=== PATIENT | female | born 1965 | race Caucasian/White ===

== ENCOUNTER → 2016-07-13 | Outpatient (CLI) | payer MEDICAID ==
--- NOTE | 2016-07-13 14:02 | XR ---
EXAMINATION TYPE: XR chest 2V DATE OF EXAM: 07/13/2016 12:39 PM HISTORY: Cough and shortness of breath. REFERENCE: Previous study dated 09/18/2014. FINDINGS: The lungs are clear. Pleural spaces are clear. The heart is not enlarged. IMPRESSION: NORMAL CHEST.
== END | disposition home or self-care (01) ==
LOC: RADXRMAIN 12:28
PROVIDERS: ATTEND Family Medicine
DX: R06.02 Shortness of breath (principal)
CPT/HCPCS: 71020

== ENCOUNTER → 2017-08-13 | Outpatient (CLI) | payer MEDICAID ==
--- NOTE | 2017-08-16 12:41 | MM ---
Reason for exam: screening (asymptomatic). Last mammogram was performed 1 year and 5 months ago. History: Patient is nulliparous. Family history of breast cancer in mother, breast cancer in maternal grandmother, and breast cancer in maternal aunt. Took estrogen for 11 years. Physical Findings: A clinical breast exam by your physician is recommended on an annual basis and results should be correlated with mammographic findings. MG 3D Screening Mammo W/Cad Bilateral CC and MLO view(s) were taken. Prior study comparison: March 30, 2016, bilateral MG 3d screening mammo w/cad. April 19, 2013, bilateral digital screening mammo w/CAD. There are scattered fibroglandular densities. No significant changes when compared with prior studies. ASSESSMENT: Negative, BI-RAD 1 RECOMMENDATION: Routine screening mammogram of both breasts in 1 year.
== END | disposition home or self-care (01) ==
LOC: RADMAMWWP 13:34
PROVIDERS: ATTEND Obstetrics & Gynecology
DX: Z12.31 Encounter for screening mammogram for malignant neoplasm of breast (principal)
CPT/HCPCS: 77063; 77067

== ENCOUNTER → 2018-03-29 | Outpatient (CLI) | payer MEDICAID ==
--- NOTE | 2018-03-29 21:59 | MR ---
EXAMINATION TYPE: MR brain wo con DATE OF EXAM: 03/29/2018 COMPARISON: NONE HISTORY: Headaches TECHNIQUE: Multiplanar, multisequence imaging of the brain and brainstem is performed without IV cont rast. FINDINGS: Diffusion weighted images demonstrate no evidence of a recent infarct or other diffusion abnormality. There is no worrisome extra-axial fluid collection. The ventricular system and cisternal spaces are normal in size and appearance. The brain volume is age appropriate. There are scattered foci of T2 h yperintensity seen throughout the superficial, deep, and periventricular white matter. Approximately 20-30 scattered lesions are present. Lesions are nonspecific in appearance and distribution of most l ikely on basis of proximal or proximal vessel ischemic change of patient this age. Midline structures demonstrate normal morphology. The craniocervical junction appears within normal limits. Normal vascular flow voids are present. The visualized sinuses are clear and the globes are i ntact. IMPRESSION: Moderate nonspecific white matter changes most likely on basis of product of chronic smal l vessel ischemic change in patient of this age.
== END | disposition home or self-care (01) ==
LOC: RADMRIMAIN 20:30
PROVIDERS: ATTEND Nurse Practitioner Family
DX: R90.89 Other abnormal findings on diagnostic imaging of central nervous system (principal)
CPT/HCPCS: 70551

== ENCOUNTER 2018-06-22 05:45 | Observation (INO) | payer MEDICAID ==
[2018-06-22] MEDS ORDERED: ASPIRIN 81 MG PO STA (05:57)
[2018-06-22] MEDS ORDERED: NITROGLYCERIN SL TABS 0.4 MG TAB SUBLINGUAL STA (05:57)
[2018-06-22] MEDS ORDERED: HEPARIN SODIUM,PORCINE 5,000 UNIT/ML 1 ML VIAL IV ONE (05:59)
--- NOTE | 2018-06-22 06:02 | ED ---
General Adult HPI - General Chief complaint: Chest Pain Stated complaint: Chest Pain Source: patient Mode of arrival: wheelchair Limitations: no limitations - Related Data Home Medications Medication Instructions Recorded Confirmed Aspirin EC [Ecotrin Low Dose] 81 mg PO DAILY 05/11/14 04/03/15 Cholecalciferol [Vitamin D3] 6,000 unit PO DAILY@1200 05/11/14 04/03/15 Multivitamins, Thera [Multivitamin 1 each PO DAILY@1200 05/11/14 04/03/15 (formulary)] lamoTRIgine [LaMICtal] 100 mg PO QAM 05/11/14 04/03/15 Levothyroxine Sodium [Synthroid] 175 mcg PO DAILY 04/03/15 04/03/15 Aspirin/Acetaminophen/Caffeine 1 tab PO Q12H PRN 06/22/18 06/22/18 [Excedrin Migraine Caplet] Escitalopram Oxalate [Lexapro] 20 mg PO DAILY 06/22/18 06/22/18 Ibuprofen [Motrin Ib] 400 - 600 mg PO Q6H PRN 06/22/18 06/22/18 buPROPion HCL [Wellbutrin XL] 300 mg PO DAILY 06/22/18 06/22/18 Allergies Allergy/AdvReac Type Severity Reaction Status Date / Time No Known Allergies Allergy Verified 06/22/18 06:57 Review of Systems ROS Statement: Those systems with pertinent positive or pertinent negative responses have been documented in the HPI. ROS Other: All systems not noted in ROS Statement are negative. Past Medical History Past Medical History: Hypertension, Thyroid Disorder Additional Past Medical History / Comment(s): "Broken heart syndrome" History of Any Multi-Drug Resistant Organisms: None Reported Past Surgical History: Tonsillectomy Additional Past Surgical History / Comment(s): CARPAL TUNNEL SURGERY, HEART CATH ONE YEAR AGO, Additional Past Anesthesia/Blood Transfusion Reaction / Comment(s): TAKES A WHILE TO COME OUT AND BLOOD PRESSURE DIPS DOWN Past Psychological History: Depression Smoking Status: Never smoker Past Alcohol Use History: Occasional Past Drug Use History: None Reported - Past Family History Mother Family Medical History: Cancer Additional Family Medical History / Comment(s): BREAST CA, JOINT REPLACEMENTS Father Family Medical History: Diabetes Mellitus Additional Family Medical History / Comment(s): PACEMAKER, ENLARGED HEART, JOINT REPLACEMENTS, DIET CONTROLLED DM, MITRAL VALVE REPLACED General Exam Limitations: no limitations Course Vital Signs 06/22/18 06/22/18 06/22/18 05:49 06:06 06:35 Temperature 98.3 F Pulse Rate 91 66 Pulse Rate [ 74 Y[employer] Weight [employer] Strength Tester ] Respiratory 20 18 Rate Blood Pressure 150/65 123/80 O2 Sat by Pulse 97 96 Oximetry Medical Decision Making - Medical Decision Making Dictation was produced using [employer] dictation software. please excuse any grammatical, word or spelling errors. Chief Complaint: 52-year-old female with past medical history of thyroid disease , hypertension, broken heart cardiomyopathy presents with chest pressure. History of Present Illness: Patient 52-year-old female. She states she was getting ready and going to work. She was in a car which she started developing pressure-like sensation to her substernal area. Patient denies any radiation of her symptoms to her jaw or shoulders. No associated diaphoresis. She is however complaining of some nausea. Denies any emesis. Patient denies any history of coronary artery disease. Patient states she felt normal upon waking. Patient is complaining of chest pressure. Denies any numbness or paresthesias to the arms or legs. The ROS documented in this emergency department record has been reviewed and confirmed by me. Those systems with pertinent positive or negative responses have been documented in the HPI. All other systems are other negative and/or noncontributory. PHYSICAL EXAM: General Impression: Alert and oriented x3, acute distress secondary to pain HEENT: Normocephalic atraumatic, extra-ocular movements intact, pupils equal and reactive to light bilaterally, mucous membranes moist. Cardiovascular: Heart regular rate and rhythm, S1&S2 audible, no murmurs, rubs or gallops Chest: Lungs clear to auscultation bilaterally, no rhonchi, no wheeze, no rales Abdomen: Bowel sounds present, abdomen soft, non-tender, non-distended, no organomegaly Musculoskeletal: Pulses present and equal in all extremities, no peripheral edema Motor: Power 5/5 bilaterally, no focal deficits noted Neurological: CN II-XII grossly intact, no focal motor or sensory deficits noted Skin: Intact with no visualized rashes Psych: Normal affect and mood ED course: 52-year-old female presents with chief complaint of chest pressure. Vital signs upon arrival are within acceptable limits. Patient's history of present illness is concerning for acute coronary syndrome. Initial EKG does not show any findings of ischemia or infarction. Patient given aspirin. Patient given sublingual nitroglycerin. Patient is started on heparin. Repeat EKG is performed 30 minutes later showing no dynamic changes.Laboratory evaluation obtained. CBC, metabolic panel, coag panel unremarkable. Cardiac enzymes. Patient started on heparin due to concerning HPI. Patient given nitro paste. Aspirin was administered. Patient be admitted for suspicion for coronary syndrome. Cardiology consult. No clinical suspicion. This time there is no sinus tachycardia patient doesn't have any complaint of shortness of breath. EKG interpretation: Ventricular rate 91, normal sinus rhythm, SD interval 162, QRS 92, QTc 460. No SD prolongation, no QTC prolongation, no ST or T-wave changes noted. Overall, this EKG is unremarkable - Lab Data Result diagrams: 06/22/18 06:04 06/22/18 06:04 Lab Results 06/22/18 06/22/18 06/22/18 Range/Units 06:04 06:04 06:04 WBC 8.8 (3.8-10.6) k/uL RBC 4.96 (3.80-5.40) m/uL Hgb 13.3 (11.4-16.0) gm/dL Hct 42.2 (34.0-46.0) % MCV 85.2 (80.0-100.0) fL MCH 26.8 (25.0-35.0) pg MCHC 31.5 (31.0-37.0) g/dL RDW 14.7 (11.5-15.5) % Plt Count 230 (150-450) k/uL Neutrophils % 58 % Lymphocytes % 29 % Monocytes % 6 % Eosinophils % 4 % Basophils % 0 % Neutrophils # 5.1 (1.3-7.7) k/uL Lymphocytes # 2.6 (1.0-4.8) k/uL Monocytes # 0.5 (0-1.0) k/uL Eosinophils # 0.3 (0-0.7) k/uL Basophils # 0.0 (0-0.2) k/uL PT (9.0-12.0) sec INR (<1.2) APTT (22.0-30.0) sec Sodium 140 (137-145) mmol/L Potassium 3.9 (3.5-5.1) mmol/L Chloride 107 (98-107) mmol/L Carbon Dioxide 24 (22-30) mmol/L Anion Gap 9 mmol/L BUN 16 (7-17) mg/dL Creatinine 0.81 (0.52-1.04) mg/dL Est GFR (CKD-EPI)AfAm >90 (>60 ml/min/1.73 sqM) Est GFR (CKD-EPI)NonAf 86 (>60 ml/min/1.73 sqM) Glucose 133 H (74-99) mg/dL Calcium 9.9 (8.4-10.2) mg/dL Magnesium 1.7 (1.6-2.3) mg/dL Total Bilirubin 0.7 (0.2-1.3) mg/dL AST 20 (14-36) U/L ALT 36 (9-52) U/L Alkaline Phosphatase 87 (38-126) U/L Total Creatine Kinase 70 (30-135) U/L Total Protein 6.4 (6.3-8.2) g/dL Albumin 3.8 (3.5-5.0) g/dL 06/22/18 Range/Units 06:04 WBC (3.8-10.6) k/uL RBC (3.80-5.40) m/uL Hgb (11.4-16.0) gm/dL Hct (34.0-46.0) % MCV (80.0-100.0) fL MCH (25.0-35.0) pg MCHC (31.0-37.0) g/dL RDW (11.5-15.5) % Plt Count (150-450) k/uL Neutrophils % % Lymphocytes % % Monocytes % % Eosinophils % % Basophils % % Neutrophils # (1.3-7.7) k/uL Lymphocytes # (1.0-4.8) k/uL Monocytes # (0-1.0) k/uL Eosinophils # (0-0.7) k/uL Basophils # (0-0.2) k/uL PT 9.5 (9.0-12.0) sec INR 0.9 (<1.2) APTT 22.9 (22.0-30.0) sec Sodium (137-145) mmol/L Potassium (3.5-5.1) mmol/L Chloride (98-107) mmol/L Carbon Dioxide (22-30) mmol/L Anion Gap mmol/L BUN (7-17) mg/dL Creatinine (0.52-1.04) mg/dL Est GFR (CKD-EPI)AfAm (>60 ml/min/1.73 sqM) Est GFR (CKD-EPI)NonAf (>60 ml/min/1.73 sqM) Glucose (74-99) mg/dL Calcium (8.4-10.2) mg/dL Magnesium (1.6-2.3) mg/dL Total Bilirubin (0.2-1.3) mg/dL AST (14-36) U/L ALT (9-52) U/L Alkaline Phosphatase (38-126) U/L Total Creatine Kinase (30-135) U/L Total Protein (6.3-8.2) g/dL Albumin (3.5-5.0) g/dL Disposition Clinical Impression: Chest pain Disposition: ADMITTED IP TO THIS HOSP Condition: Fair Referrals: Orlando Elizalde III, MD [Primary Care Provider] - 1-2 days Decision Time: 07:02
[2018-06-22 06:27] LABS: Basophils % (A) 0 %; Eosinophils # (A) 0.3 k/uL (0-0.7); Eosinophils % (A) 4 %; HCT 42.2 % (34.0-46.0); HGB 13.3 gm/dL (11.4-16.0); Lymphocytes # (A) 2.6 k/uL (1.0-4.8); Lymphocytes % (A) 29 %; MCH 26.8 pg (25.0-35.0); MCHC 31.5 g/dL (31.0-37.0); MCV 85.2 fL (80.0-100.0); Mean Platelet Volume 6.6; Monocytes # (A) 0.5 k/uL (0-1.0); Monocytes % (A) 6 %; Neutrophils # (A) 5.1 k/uL (1.3-7.7); Neutrophils % (A) 58 %; Platelet Count 230 k/uL (150-450); RBC 4.96 m/uL (3.80-5.40); RDW 14.7 % (11.5-15.5); WBC 8.8 k/uL (3.8-10.6)
[2018-06-22 06:33] LABS: Albumin 3.8 g/dL (3.5-5.0); Anion Gap 9 mmol/L; Blood Urea Nitrogen 16 mg/dL (7-17); Calcium 9.9 mg/dL (8.4-10.2); Carbon Dioxide 24 mmol/L (22-30); Chloride 107 mmol/L (98-107); Glucose 133 mg/dL (74-99); Magnesium 1.7 mg/dL (1.6-2.3); Potassium 3.9 mmol/L (3.5-5.1); Sodium 140 mmol/L (137-145); Total Protein 6.4 g/dL (6.3-8.2)
[2018-06-22 06:34] LABS: ALT 36 U/L (9-52); AST 20 U/L (14-36); Alkaline Phosphatase 87 U/L (38-126); Total Bilirubin 0.7 mg/dL (0.2-1.3)
[2018-06-22 06:40] LABS: INR 0.9 (<1.2); Prothrombin Time 9.5 sec (9.0-12.0)
--- NOTE | 2018-06-22 06:40 | XR ---
EXAM: XR Chest, 2 Views. CLINICAL HISTORY: Reason: Chest Pain TECHNIQUE: Frontal and lateral views of the chest. COMPARISON: No relevant prior studies available. FINDINGS: Lungs: Lung volumes are within normal limits. No consolidation. Pleural spaces: No significant pleural effusions. No pneumothorax. Heart: Unremarkable. No cardiomegaly. Mediastinum: No mediastinal widening or shift. Bones: Unremarkable. No acute fracture. IMPRESSION: No evidence of active cardiopulmonary abnormality.
[2018-06-22 06:41] LABS: Partial Thromboplastin Time 22.9 sec (22.0-30.0)
[2018-06-22] MEDS ORDERED: NITROGLYCERIN SL TABS 0.4 MG TAB SUBLINGUAL PRN (06:46)
[2018-06-22 06:51] LABS: Creatine Kinase 70 U/L (30-135)
[2018-06-22] MEDS ORDERED: NITROGLYCERIN OINT 1 INCH/GM PACKET TOPICAL STA (06:58)
[2018-06-22 07:02] LABS: Creatine Kinase MB 1.2 ng/mL (0.0-2.4); Troponin I <0.012 ng/mL (0.000-0.034)
[2018-06-22] MEDS: HEPARIN SOD,PORK IN 0.45% NACL 25,000 UNIT in 0.45% NACL 1 250ML.BAG IV SCH (07:07)
--- NOTE | 2018-06-22 10:04 | ECHOF ---
Referral Reason:cp MEASUREMENTS -------- HEIGHT: 160.0 cm WEIGHT: 115.7 kg BP: 148/8 RVIDd: 3.1 cm (< 3.3) IVSd: 1.3 cm (0.6 - 1.1) LVIDd: 5.4 cm (3.9 - 5.3) LVPWd: 1.1 cm (0.6 - 1.1) IVSs: 1.9 cm LVIDs: 4.1 cm LVPWs: 1.7 cm LA Diam: 3.8 cm (2.7 - 3.8) LAESV Index (A-L): 32.49 ml/m Ao Diam: 3.5 cm (2.0 - 3.7) AV Cusp: 1.8 cm (1.5 - 2.6) MV EXCURSION: 11.106 mm (> 18.000) MV EF SLOPE: 30 mm/s (70 - 150) EPSS: 1.8 cm MV E Gopi: 1.14 m/s MV DecT: 308 ms MV A Gopi: 1.14 m/s MV E/A Ratio: 1.00 AV maxP.69 mmHg AV meanP.81 mmHg AR PHT: 1337 ms FINDINGS -------- Sinus rhythm. This was a technically difficult study with suboptimal views. The left ventricle is mildly dilated. There is mild concentric left ventricular hypertrophy. Over all left ventricular systolic function is low-normal with, an EF between 50 - 55 %. The right ventricle is normal in size. LA is midly dilated 29-33ml/m2. The right atrium is normal in size. 3 ml of Lumason was utilized for enhancement of images. The aortic valve is trileaflet and appears structurally normal. There is mild aortic regurgitation. There is mild aortic stenosis present. Mild mitral regurgitation is present. Trace tricuspid regurgitation present. Trace/mild (physiologic) pulmonic regurgitation. The aortic root size is normal. Normal inferior vena cava with normal inspiratory collapse consistent with estimated right atrial pre ssure of 5 mmHg. There is no pericardial effusion. CONCLUSIONS -------- 1. Sinus rhythm. 2. This was a technically difficult study with suboptimal views. 3. The left ventricle is mildly dilated. 4. There is mild concentric left ventricular hypertrophy. 5. Overall left ventricular systolic function is low-normal with, an EF between 50 - 55 %. 6. The right ventricle is normal in size. 7. LA is midly dilated 29-33ml/m2. 8. The right atrium is normal in size. 9. 3 ml of Lumason was utilized for enhancement of images. 10. The aortic valve is trileaflet and appears structurally normal. 11. There is mild aortic regurgitation. 12. There is mild aortic stenosis present. 13. Mild mitral regurgitation is present. 14. Trace tricuspid regurgitation present. 15. Trace/mild (physiologic) pulmonic regurgitation. 16. The aortic root size is normal. 17. Normal inferior vena cava with normal inspiratory collapse consistent with estimated right atrial pressure of 5 mmHg. 18. There is no pericardial effusion. CERTIFIED SURGICAL TECHNICIAN: Bettina Goodman RDCS
[2018-06-22 10:29] LABS: Creatine Kinase MB 1.2 ng/mL (0.0-2.4)
[2018-06-22 10:35] LABS: Troponin I 0.039 ng/mL (0.000-0.034)
[2018-06-22] MEDS ORDERED: ACETAMINOPHEN TAB 325 MG TAB PO PRN (11:49)
[2018-06-22] MEDS ORDERED: ASPIRIN-ACET-CAFF 250-250-65MG 1 EACH TAB PO PRN (12:23)
[2018-06-22] MEDS ORDERED: ONDANSETRON 4 MG/2 ML VIAL IVP PRN (13:20)
--- NOTE | 2018-06-22 13:20 | P.CRDCN ---
History of Present Illness History of present illness: This is a pleasant 52-year-old female past medical history significant for takotsubo syndrome in 2013, normal coronary arteries by catheterization 2013, hypertension, dyslipidemia and obesity. She has followed with Dr. De Jesus in the office immediately thereafter the event in 2013 and underwent a repeat echo that revealed improved LV systolic function with EF 50% . Since that time she has not followed up. At that time she was prescribed aspirin 81 mg daily, Coreg 3.125 mg twice a day, lisinopril 5 mg daily and Lipitor 80 mg daily. Over the years she has discontinued use of all these medications with the exception of aspirin 81 mg daily. We have been asked to see her in consultation for symptoms of chest pain. This morning while driving she developed an acute onset of a tight pressure sensation in the midsternal region. There is no radiation to the arm, back, neck or jaw. The pain was so intense that caused her to have to sheeting puller on the side of the road. She became mildly nauseated as well. She denies shortness of breath, dizziness, palpitations or vomiting. Upon arrival to the emergency department she was continuing to have significant chest discomfort. Sublingual nitroglycerin was administered and her pain slowly started to subside she continues to describe mild discomfort in the chest roughly 1-2 out of 10. EKG reveals sinus mechanism with no acute ST or T wave at the mallet is noted. When compared to EKG in 2014 was noted at that time to these T-wave inversions in the lateral leads. This is not the case currently. Chest x-ray is negative for acute cardiopulmonary process. Laboratory data reviewed, WBC 8.8, hemoglobin 13.3, platelets 230, sodium 140, potassium 3.9, creatinine 0.81, magnesium 1.7, initial troponin is negative, second troponin 0.039. At the time of my exam: CONSTITUTIONAL: Denies fever. Denies chills. EYES: Denies blurred vision. Denies vision changes. Denies eye pain. EARS, NOSE, MOUTH & THROAT: Denies headache. Denies sore throat. Denies ear pain. CARDIOVASCULAR: Complains of chest pain. Denies shortness of breath. Denies orthopnea. Denies PND. Denies palpitations. RESPIRATORY: Denies cough. GASTROINTESTINAL: Denies abdominal pain. Denies diarrhea. Denies constipation. Denies nausea. Denies vomiting. MUSCULOSKELETAL: Denies myalgias. INTEGUMENTARY: Denies pruitis. Denies rash. NEUROLOGIC: Denies numbness. Denies tingling. Denies weakness. PSYCHIATRIC: Denies anxiety. Denies depression. ENDOCRINE: Denies fatigue. Denies weight change. Denies polydipsia. Denies polyurina. GENITOURINARY: Denies burning, hematuria or urgency with micturation. HEMATOLOGIC: Denies history of anemia. Denies bleeding. Blood pressure 125/66 heart rate 62 afebrile maintaining oxygen saturation on room air GENERAL: This is a 52-year-old female in no apparent distress at the time of my examination. Obese. HEENT: Head is atraumatic, normocephalic. Pupils are equal, round. Sclerae anicteric. Conjunctivae are clear. Mucous membranes of the mouth are moist. Neck is supple. There is no jugular venous distention. No carotid bruit is heard. LUNGS: Clear to auscultation no wheezes, rales or rhonchi. No chest wall tenderness is noted on palpation or with deep breathing. HEART: Regular rate and rhythm with short systolic murmur at the left sternal border, no rubs or gallops. S1 and S2 heard. ABDOMEN: Soft, nontender. Bowel sounds are heard. No organomegaly noted. EXTREMITIES: Trace bilateral lower extremity edema and no calf tenderness noted. VASCULAR: Radial and dorsalis pedis pulses palpated, no evidence of clubbing. NEUROLOGIC: Patient is awake, alert and oriented x3. ASSESSMENT Precordial chest pain History of takotsubo 2014 History of nonischemic cardiomyopathy, improved Hypertension Dyslipidemia Obesity, BMI 46 PLAN Second troponin obtained after 4 hours indicates mild leak. Will repeat a third level tomorrow morning. Obtain 2-D echocardiogram and Doppler study to assess cardiac structure and function. Continue heparin infusion and decrease aspirin to 81 mg. Check lipid panel. Continuous telemetry monitoring for acute arrhythmia. Increase activity and assess for further symptoms chest discomfort. If she develops chest discomfort obtain a stat EKG. Further recommendations to follow based upon clinical course. Thank you kindly for this consultation. Nurse Practitioner note has been reviewed, I agree with a documented findings and plan of care. Patient was seen and examined. Past Medical History Past Medical History: GERD/Reflux, Hyperlipidemia, Hypertension, Myocardial Infarction (RI), Thyroid Disorder Additional Past Medical History / Comment(s): 2013 Takosubo syndrome/ cardiomyopathy/RI per pt, Dov's, migraines, bilateral leg varicosities Last Myocardial Infarction Date:: 04/2014-Takosubo syndrome History of Any Multi-Drug Resistant Organisms: None Reported Past Surgical History: Heart Catheterization, Orthopedic Surgery, Tonsillectomy Additional Past Surgical History / Comment(s): R CARPAL TUNNEL SURGERY, R KNEE ARTHROSCOPY FOR TORN MENISCUS. Additional Past Anesthesia/Blood Transfusion Reaction / Comment(s): TAKES A WHILE TO COME OUT AND BLOOD PRESSURE DIPS DOWN Smoking Status: Never smoker - Past Family History Mother Family Medical History: Cancer Additional Family Medical History / Comment(s): BREAST CA, JOINT REPLACEMENTS. MOTHER IS 77YRS OLD Father Family Medical History: Diabetes Mellitus Additional Family Medical History / Comment(s): PACEMAKER, ENLARGED HEART, JOINT REPLACEMENTS, DIET CONTROLLED DM, MITRAL VALVE REPLACED. FATHER IS 77YRS OLD. Medications and Allergies Home Medications Medication Instructions Recorded Confirmed Type Aspirin EC [Ecotrin Low Dose] 81 mg PO DAILY 05/11/14 06/22/18 History Cholecalciferol [Vitamin D3] 4,000 unit PO DAILY 05/11/14 06/22/18 History Multivitamins, Thera [Multivitamin 1 tab PO DAILY 05/11/14 06/22/18 History (formulary)] lamoTRIgine [LaMICtal] 100 mg PO QAM 05/11/14 06/22/18 History Levothyroxine Sodium [Synthroid] 175 mcg PO DAILY 04/03/15 06/22/18 History Aspirin/Acetaminophen/Caffeine 1 tab PO Q12H PRN 06/22/18 06/22/18 History [Excedrin Migraine Caplet] Escitalopram Oxalate [Lexapro] 20 mg PO DAILY 06/22/18 06/22/18 History Ibuprofen [Motrin Ib] 400 - 600 mg PO Q6H PRN 06/22/18 06/22/18 History buPROPion HCL [Wellbutrin XL] 300 mg PO DAILY 06/22/18 06/22/18 History Allergies Allergy/AdvReac Type Severity Reaction Status Date / Time No Known Allergies Allergy Verified 06/22/18 06:57 Physical Exam Vitals: Vital Signs Temp Pulse Pulse Pulse Resp BP BP 06/22/18 07:49 97.5 F L 69 18 148/78 06/22/18 07:29 98.5 F 69 20 119/54 06/22/18 07:10 64 18 123/56 06/22/18 07:00 67 18 123/80 06/22/18 06:35 66 18 123/80 06/22/18 06:06 74 06/22/18 05:49 98.3 F 91 20 150/65 Pulse Ox 06/22/18 07:49 98 06/22/18 07:29 100 06/22/18 07:10 97 06/22/18 07:00 96 06/22/18 06:35 96 06/22/18 06:06 06/22/18 05:49 97 Intake and Output 06/21/18 06/22/18 06/22/18 22:59 06:59 14:59 Other: Weight 115.666 kg Results 06/22/18 06:04 06/22/18 06:04 Cardiac Enzymes 06/22/18 06/22/18 Range/Units 06:04 06:04 AST 20 (14-36) U/L CK-MB (CK-2) 1.2 (0.0-2.4) ng/mL Troponin I <0.012 (0.000-0.034) ng/mL Coagulation 06/22/18 Range/Units 06:04 PT 9.5 (9.0-12.0) sec APTT 22.9 (22.0-30.0) sec CBC 06/22/18 Range/Units 06:04 WBC 8.8 (3.8-10.6) k/uL RBC 4.96 (3.80-5.40) m/uL Hgb 13.3 (11.4-16.0) gm/dL Hct 42.2 (34.0-46.0) % Plt Count 230 (150-450) k/uL Comprehensive Metabolic Panel 06/22/18 Range/Units 06:04 Sodium 140 (137-145) mmol/L Potassium 3.9 (3.5-5.1) mmol/L Chloride 107 (98-107) mmol/L Carbon Dioxide 24 (22-30) mmol/L BUN 16 (7-17) mg/dL Creatinine 0.81 (0.52-1.04) mg/dL Glucose 133 H (74-99) mg/dL Calcium 9.9 (8.4-10.2) mg/dL AST 20 (14-36) U/L ALT 36 (9-52) U/L Alkaline Phosphatase 87 (38-126) U/L Total Protein 6.4 (6.3-8.2) g/dL Albumin 3.8 (3.5-5.0) g/dL Current Medications Generic Name Dose Route Start Last Admin Trade Name Freq PRN Reason Stop Dose Admin Aspirin 325 mg 06/23/18 09:00 Aspirin PO DAILY [facility] Heparin Sodium (Porcine) 0 unit 06/22/18 05:59 Heparin IV PER PROTOCOL PRN Low PTT Protocol Heparin Sodium/Sodium Chloride 250 mls @ 10 mls/hr 06/22/18 06:00 06/22/18 07 :07 25,000 unit/ Sodium Chloride IV 8.65 units/kg/hr .Q24H PERI 10 mls/hr Administration Protocol Nitroglycerin 0.4 mg 06/22/18 06:46 Nitrostat SUBLINGUAL Q5M PRN Chest Pain Intake and Output 06/21/18 06/22/18 06/22/18 22:59 06:59 14:59 Other: Weight 115.666 kg 06/22/18 06:04 06/22/18 06:04
--- NOTE | 2018-06-22 14:25 | P.HPIM ---
History of Present Illness Patient is a pleasant 52-year-old female with history of takotsubo syndrome in 2013 came in with complaints of chest pressure like sensation moderate severity nonradiating, associated nausea denied any lightheadedness shortness of breath associated with that. Denied any diaphoresis patient's symptoms started consultant technology today. Patient denied any fever chills cough runny nose. Patient still diabetes nauseous patient's first set of troponin is negative second set of troponin is minimally elevated cardiology evaluated the patient and symptomatically do not believe patient's pain is cardiac in nature cannot completely rule out gastroesophageal reflux disease patient will be started on IV Protonix. Third set of troponin will be repeated tomorrow if it's elevated patient may and up needing a cardiac catheterization at that time. Her second troponin was 0.039. On is within normal limits. EKG did not show any acute ST- T wave changes Review of Systems REVIEW OF SYSTEMS: CONSTITUTIONAL: No fever, no malaise, no fatigue. HEENT: No recent visual problems or hearing problems. Denied any sore throat. CARDIOVASCULAR: No orthopnea, PND, no palpitations, no syncope. PULMONARY: No shortness of breath, no cough, no hemoptysis. GASTROINTESTINAL: No diarrhea, no nausea, no vomiting, no abdominal pain. NEUROLOGICAL: No headaches, no weakness, no numbness. HEMATOLOGICAL: Denies any bleeding or petechiae. GENITOURINARY: Denies any burning micturition, frequency, or urgency. MUSCULOSKELETAL/RHEUMATOLOGICAL: Denies any joint pain, swelling, or any muscle pain. ENDOCRINE: Denies any polyuria or polydipsia. The rest of the 14-point review of systems is negative. Past Medical History Past Medical History: GERD/Reflux, Hyperlipidemia, Hypertension, Myocardial Infarction ([place]), Thyroid Disorder Additional Past Medical History / Comment(s): 2013 Takosubo syndrome/ cardiomyopathy/NM per pt, Dov's, migraines, bilateral leg varicosities Last Myocardial Infarction Date:: 04/2014-Takosubo syndrome History of Any Multi-Drug Resistant Organisms: None Reported Past Surgical History: Heart Catheterization, Orthopedic Surgery, Tonsillectomy Additional Past Surgical History / Comment(s): R CARPAL TUNNEL SURGERY, R KNEE ARTHROSCOPY FOR TORN MENISCUS. Additional Past Anesthesia/Blood Transfusion Reaction / Comment(s): TAKES A WHILE TO COME OUT AND BLOOD PRESSURE DIPS DOWN Smoking Status: Never smoker - Past Family History Mother Family Medical History: Cancer Additional Family Medical History / Comment(s): BREAST CA, JOINT REPLACEMENTS. MOTHER IS 77YRS OLD Father Family Medical History: Diabetes Mellitus Additional Family Medical History / Comment(s): PACEMAKER, ENLARGED HEART, JOINT REPLACEMENTS, DIET CONTROLLED DM, MITRAL VALVE REPLACED. FATHER IS 77YRS OLD. Medications and Allergies Home Medications Medication Instructions Recorded Confirmed Type Aspirin EC [Ecotrin Low Dose] 81 mg PO DAILY 05/11/14 06/22/18 History Cholecalciferol [Vitamin D3] 4,000 unit PO DAILY 05/11/14 06/22/18 History Multivitamins, Thera [Multivitamin 1 tab PO DAILY 05/11/14 06/22/18 History (formulary)] lamoTRIgine [LaMICtal] 100 mg PO QAM 05/11/14 06/22/18 History Levothyroxine Sodium [Synthroid] 175 mcg PO DAILY 04/03/15 06/22/18 History Aspirin/Acetaminophen/Caffeine 1 tab PO Q12H PRN 06/22/18 06/22/18 History [Excedrin Migraine Caplet] Escitalopram Oxalate [Lexapro] 20 mg PO DAILY 06/22/18 06/22/18 History Ibuprofen [Motrin Ib] 400 - 600 mg PO Q6H PRN 06/22/18 06/22/18 History buPROPion HCL [Wellbutrin XL] 300 mg PO DAILY 06/22/18 06/22/18 History Allergies Allergy/AdvReac Type Severity Reaction Status Date / Time No Known Allergies Allergy Verified 06/22/18 06:57 Physical Exam Vitals: Vital Signs Temp Pulse Pulse Pulse Resp BP BP 06/22/18 11:50 74 62 18 06/22/18 11:30 98.4 F 62 18 125/66 06/22/18 11:02 06/22/18 07:58 74 69 18 06/22/18 07:49 97.5 F L 69 18 148/78 06/22/18 07:29 98.5 F 69 20 119/54 06/22/18 07:10 64 18 123/56 06/22/18 07:00 67 18 123/80 06/22/18 06:35 66 18 123/80 06/22/18 06:06 74 06/22/18 05:49 98.3 F 91 20 150/65 Pulse Ox 06/22/18 11:50 06/22/18 11:30 97 06/22/18 11:02 95 06/22/18 07:58 06/22/18 07:49 98 06/22/18 07:29 100 06/22/18 07:10 97 06/22/18 07:00 96 06/22/18 06:35 96 06/22/18 06:06 06/22/18 05:49 97 Intake and Output 06/21/18 06/22/18 06/22/18 22:59 06:59 14:59 Other: Voiding Method Toilet Weight 115.666 kg 118.1 kg PHYSICAL EXAMINATION: GENERAL: The patient is alert and oriented x3, not in any acute distress. Well developed, well nourished. HEENT: Pupils are round and equally reacting to light. EOMI. No scleral icterus. No conjunctival pallor. Normocephalic, atraumatic. No pharyngeal erythema. No thyromegaly. CARDIOVASCULAR: S1 and S2 present. No murmurs, rubs, or gallops. PULMONARY: Chest is clear to auscultation, no wheezing or crackles. ABDOMEN: Soft, nontender, nondistended, normoactive bowel sounds. No palpable organomegaly. MUSCULOSKELETAL: No joint swelling or deformity. EXTREMITIES: No cyanosis, clubbing, or pedal edema. NEUROLOGICAL: Gross neurological examination did not reveal any focal deficits. SKIN: No rashes. Results CBC & Chem 7: 06/22/18 06:04 06/22/18 06:04 Labs: Abnormal Lab Results - Last 24 Hours (Table) 06/22/18 06/22/18 Range/Units 06:04 09:28 Glucose 133 H (74-99) mg/dL Troponin I 0.039 H* (0.000-0.034) ng/mL Thrombosis Risk Factor Assmnt - Choose All That Apply Any of the Below Risk Factors Present?: Yes Each Factor Represents 1 point: Age 41-60 years, Obesity (BMI >25), Varicose veins Other Risk Factors: No Other congenital or acquired thrombophilia - If yes, enter type in comment: No Thrombosis Risk Factor Assessment Total Risk Factor Score: 3 Thrombosis Risk Factor Assessment Level: Moderate Risk Assessment and Plan Plan: Chest pain: Appears to be atypical but patient had very minimal elevated troponin etiology of this troponin is not clear what appears to be noncardiac as per cardiology. We'll repeat on the troponin tomorrow morning will closely monitor her tonight further management depending on the third troponin tomorrow morning. Patient does have nausea wasn't radically treat this patient was started on Protonix will see if there is any symptomatic improvement with these 2 medications. -History of nonischemic cardio myopathy which resolved improved stress related cardiomyopathy in the past presently not an issue -Hypertension -Hyperlipidemia -Obesity -Hypothyroidism - history of migraine for which patient is on multiple medications all of which will be started except for nonsteroidal anti-inflammatories because of past bradycardia of esophagitis and gastritis contributive to her symptoms Above-mentioned chronic medical problems patient will be resumed and continued on appropriate medications
[2018-06-22] MEDS: HEPARIN SODIUM,PORCINE 5,000 UNIT/ML 1 ML VIAL IV PRN ×2 (15:11→22:40)
[2018-06-22] MEDS: PANTOPRAZOLE 40 MG TABLET PO SCH (17:37)
[2018-06-23] MEDS: HEPARIN SOD,PORK IN 0.45% NACL 25,000 UNIT in 0.45% NACL 1 250ML.BAG IV SCH (02:38)
[2018-06-23 05:26] LABS: Cholesterol 198 mg/dL (<200); HDL Cholesterol 65 mg/dL (40-60); LDL Cholesterol,Calculated 111 mg/dL (0-99); Triglycerides 110 mg/dL (<150)
[2018-06-23] MEDS ORDERED: LEVOTHYROXINE 88 MCG TAB PO SCH (06:30)
[2018-06-23 08:13] VITALS: BP 152/72; PULSE 58; RESP 14; TEMP 98.3
[2018-06-23] MEDS ORDERED: ESCITALOPRAM 20 MG TAB PO SCH (09:00)
[2018-06-23] MEDS ORDERED: buPROPion XL 300 MG TAB.ER.24H PO SCH (09:00)
[2018-06-23] MEDS ORDERED: ASPIRIN 325 MG TAB PO SCH (09:00)
[2018-06-23] MEDS ORDERED: lamoTRIgine 100 MG TAB PO SCH (09:00)
[2018-06-23] MEDS ORDERED: ASPIRIN 81 MG PO SCH (09:00)
[2018-06-23] MEDS: PANTOPRAZOLE 40 MG TABLET PO SCH (11:31)
--- NOTE | 2018-06-23 12:47 | P.DS ---
Providers Date of admission: 06/22/18 06:46 Attending physician: Angie Vela Consults: 06/22/18 06:46 Consult Physician Urgent Consulting Provider: Nicholas Grigsby Consult Reason/Comments: ACS Do you want consulting provider notified?: Yes Primary care physician: Orlando Elizalde Va Hospital Course: Patient was admitted for chest pain we'll rule out a concurrent syndromes patient chest pain appears to be secondary to gastroesophageal reflux disease patient will be discharged on Prilosec. Patient's third troponin was negative cleared for discharge from cardiology perspective PHYSICAL EXAMINATION: GENERAL: The patient is alert and oriented x3, not in any acute distress. Well developed, well nourished. HEENT: Pupils are round and equally reacting to light. EOMI. No scleral icterus. No conjunctival pallor. Normocephalic, atraumatic. No pharyngeal erythema. No thyromegaly. CARDIOVASCULAR: S1 and S2 present. No murmurs, rubs, or gallops. PULMONARY: Chest is clear to auscultation, no wheezing or crackles. ABDOMEN: Soft, nontender, nondistended, normoactive bowel sounds. No palpable organomegaly. MUSCULOSKELETAL: No joint swelling or deformity. EXTREMITIES: No cyanosis, clubbing, or pedal edema. NEUROLOGICAL: Gross neurological examination did not reveal any focal deficits. SKIN: No rashes. The rest of the other chronic medical problems hospitalization course please refer to my dictation of H&P from yesterday Patient Condition at Discharge: Fair Plan - Discharge Summary Discharge Rx Participant: No New Discharge Prescriptions: New Omeprazole [PriLOSEC] 40 mg PO AC-BRKFST #14 capsule. Continue lamoTRIgine [LaMICtal] 100 mg PO QAM Multivitamins, Thera [Multivitamin (formulary)] 1 tab PO DAILY Aspirin EC [Ecotrin Low Dose] 81 mg PO DAILY Cholecalciferol [Vitamin D3] 4,000 unit PO DAILY Levothyroxine Sodium [Synthroid] 175 mcg PO DAILY Aspirin/Acetaminophen/Caffeine [Excedrin Migraine Caplet] 1 tab PO Q12H PRN PRN Reason: Migraine Headache buPROPion HCL [Wellbutrin XL] 300 mg PO DAILY Escitalopram Oxalate [Lexapro] 20 mg PO DAILY Discontinued Ibuprofen [Motrin Ib] 400 - 600 mg PO Q6H PRN PRN Reason: Pain Or Fever > 100.5 Discharge Medication List Aspirin EC [Ecotrin Low Dose] 81 mg PO DAILY 05/11/14 [History] Cholecalciferol [Vitamin D3] 4,000 unit PO DAILY 05/11/14 [History] Multivitamins, Thera [Multivitamin (formulary)] 1 tab PO DAILY 05/11/14 [History ] lamoTRIgine [LaMICtal] 100 mg PO QAM 05/11/14 [History] Levothyroxine Sodium [Synthroid] 175 mcg PO DAILY 04/03/15 [History] Aspirin/Acetaminophen/Caffeine [Excedrin Migraine Caplet] 1 tab PO Q12H PRN [History] Escitalopram Oxalate [Lexapro] 20 mg PO DAILY 06/22/18 [History] buPROPion HCL [Wellbutrin XL] 300 mg PO DAILY 06/22/18 [History] Omeprazole [PriLOSEC] 40 mg PO QASIM-BRKFST #14 capsule. 06/23/18 [Rx] Follow up Appointment(s)/Referral(s): Orlando Elizalde III, MD [Primary Care Provider] - 1-2 days
== END 2018-06-23 14:53 | disposition home or self-care (01) ==
LOC: EC 05:45 → 1SOBS 06:46
PROVIDERS: ADMIT Hospitalist; ATTEND Hospitalist
DX: K21.9 Gastro-esophageal reflux disease without esophagitis (principal); I11.9 Hypertensive heart disease without heart failure; R77.8 Other specified abnormalities of plasma proteins; I25.2 Old myocardial infarction; E78.5 Hyperlipidemia, unspecified; E06.3 Autoimmune thyroiditis; R07.2 Precordial pain; I42.9 Cardiomyopathy, unspecified; E03.9 Hypothyroidism, unspecified; F32.9 Major depressive disorder, single episode, unspecified; G43.909 Migraine, unspecified, not intractable, without status migrainosus; I83.93 Asymptomatic varicose veins of bilateral lower extremities; E66.9 Obesity, unspecified; Z68.42 Body mass index [BMI] 45.0-49.9, adult; Z79.899 Other long term (current) drug therapy; Z79.890 Hormone replacement therapy; Z79.82 Long term (current) use of aspirin; Z80.3 Family history of malignant neoplasm of breast; Z83.3 Family history of diabetes mellitus
CPT/HCPCS: 96365; 96366; 96376; 99285; 36415; 94760; 93005; 93306; 80061; 80053; 82550; 82553; 83735; 84484 ×2; 85025; 85610; 85730 ×2; 71046; G0378 ×2; J1644 ×3; Q9950

== ENCOUNTER → 2018-07-20 | Outpatient (CLI) | payer MEDICAID ==
--- NOTE | 2018-07-21 00:14 | MR ---
EXAMINATION TYPE: MR brain wo/w con DATE OF EXAM: 07/20/2018 COMPARISON: 03/29/2018 HISTORY: White matter changes, F/U, No current symptoms TECHNIQUE: Multiplanar, multisequence images of the brain and brainstem is performed without and with IV contras t, utilizing 12 mL intravenous Gadavist . FINDINGS: Ventricles have normal size. There is no mass effect nor midline shift. There is no sign of intracran ial hemorrhage. There are multiple scattered areas of white matter increased signal in this demarco-whit e matter junction of both cerebral hemispheres. The total number is approximately 25. These measure u p to 8 mm. There is no evidence of cerebral edema. There is some mucosal thickening in the ethmoid an d maxillary sinuses. The brain stem is intact. Cerebellum is intact. There is mild cerebral cortical atrophy. I see no evidence of cortical infarct. The corpus callosum is intact. Sella turcica appears normal. There is a small linear area of increased signal in the posterior trey also. This measures 8 x 3 mm. There is no pathologic enhancement. There is normal contrast opacification of the venous sinuses. The re is arterial flow demonstrated in the anterior middle and posterior cerebral arteries. There is no evidence of orbital mass. IMPRESSION: Multiple scattered white matter high signal foci on the T2 and FLAIR images without signi ficant change compared to last exam. This is more likely related to small vessel ischemia. Demyelinat ing disease is also possible. There is ethmoid sinusitis and mild maxillary sinusitis that is new compared to old exam.
== END ==
LOC: RADMRIMAIN 20:34
PROVIDERS: ATTEND Psychiatry & Neurology Neurology
DX: R90.89 Other abnormal findings on diagnostic imaging of central nervous system (principal)
CPT/HCPCS: 70553; A9585

== ENCOUNTER → 2019-02-03 | Outpatient (CLI) | payer MEDICAID ==
--- NOTE | 2019-02-06 10:25 | MM ---
Reason for exam: screening (asymptomatic). Last mammogram was performed 1 year and 6 months ago. History: Patient is nulliparous. Family history of breast cancer in mother, breast cancer in maternal grandmother, and breast cancer in maternal aunt. Took estrogen for 11 years. Physical Findings: A clinical breast exam by your physician is recommended on an annual basis and results should be correlated with mammographic findings. MG 3D Screening Mammo W/Cad Bilateral CC and MLO view(s) were taken. Prior study comparison: August 13, 2017, bilateral MG 3d screening mammo w/cad. March 30, 2016, bilateral MG 3d screening mammo w/cad. There are scattered fibroglandular densities. There is no discrete abnormality. No significant changes when compared with prior studies. ASSESSMENT: Negative, BI-RAD 1 RECOMMENDATION: Routine screening mammogram of both breasts in 1 year.
== END | disposition home or self-care (01) ==
LOC: RADMAMWWP 13:13
PROVIDERS: ATTEND Obstetrics & Gynecology
DX: Z12.31 Encounter for screening mammogram for malignant neoplasm of breast (principal); Z80.3 Family history of malignant neoplasm of breast
CPT/HCPCS: 77063; 77067

== ENCOUNTER 2019-05-16 09:27 | Emergency (ER) | payer BC ==
[2019-05-16 09:37] VITALS: TEMP 98.2
[2019-05-16] MEDS ORDERED: HYDROcodone/APAP 5-325MG 1 EACH TAB PO STA (09:45)
--- NOTE | 2019-05-16 09:47 | ED ---
Lower Extremity Injury HPI - General Chief Complaint: Extremity Injury, Lower Stated Complaint: fall, lt knee injury Time Seen by Provider: 05/16/19 09:38 Source: patient, RN notes reviewed Mode of arrival: wheelchair Limitations: no limitations - History of Present Illness Initial Comments: 53-year-old female presents emergency Department chief complaint left leg and knee pain. Patient states that she tripped and fell on concrete on states that she's been tolerating the pain persisted pain is Unbearable. Patient Denies Any Paresthesias to Her Leg but States That Her Leg Is Very Swollen. Patient's Been Taken Motrin Ice and Elevating with No Increasing Improvement of Her Symptoms. Patient Denies Any Hip Pain, Ankle Pain. Denies Any Chest Pain or Shortness Breath. No Loss Conscious. Patient Denies Any Head Injuries during the Fall. - Related Data Home Medications Medication Instructions Recorded Confirmed Aspirin EC [Ecotrin Low Dose] 81 mg PO DAILY 05/11/14 06/22/18 Cholecalciferol [Vitamin D3 (25 4,000 unit PO DAILY 05/11/14 06/22/18 Mcg = 1000 Iu)] Multivitamins, Thera [Multivitamin 1 tab PO DAILY 05/11/14 06/22/18 (formulary)] lamoTRIgine [LaMICtal] 100 mg PO QAM 05/11/14 06/22/18 Levothyroxine Sodium [Synthroid] 175 mcg PO DAILY 04/03/15 06/22/18 Aspirin/Acetaminophen/Caffeine 1 tab PO Q12H PRN 06/22/18 06/22/18 [Excedrin Migraine Caplet] Escitalopram Oxalate [Lexapro] 20 mg PO DAILY 06/22/18 06/22/18 buPROPion HCL [Wellbutrin XL] 300 mg PO DAILY 06/22/18 06/22/18 Previous Rx's Medication Instructions Recorded Omeprazole [PriLOSEC] 40 mg PO -BRKFST #14 capsule. 06/23/18 Allergies Allergy/AdvReac Type Severity Reaction Status Date / Time No Known Allergies Allergy Verified 05/16/19 09:32 Review of Systems ROS Statement: Those systems with pertinent positive or pertinent negative responses have been documented in the HPI. ROS Other: All systems not noted in ROS Statement are negative. Past Medical History Past Medical History: GERD/Reflux, Hyperlipidemia, Hypertension, Myocardial Infarction ([place]), Thyroid Disorder Additional Past Medical History / Comment(s): 2013 Takosubo syndrome/cardiomyopathy/[place] per pt, Dov's, migraines, bilateral leg varicosities Last Myocardial Infarction Date:: 04/2014-Takosubo syndrome History of Any Multi-Drug Resistant Organisms: None Reported Past Surgical History: Heart Catheterization, Orthopedic Surgery, Tonsillectomy Additional Past Surgical History / Comment(s): R CARPAL TUNNEL SURGERY, R KNEE ARTHROSCOPY FOR TORN MENISCUS. Additional Past Anesthesia/Blood Transfusion Reaction / Comment(s): TAKES A WHILE TO COME OUT AND BLOOD PRESSURE DIPS DOWN Past Psychological History: Depression Smoking Status: Never smoker - Past Family History Mother Family Medical History: Cancer Additional Family Medical History / Comment(s): BREAST CA, JOINT REPLACEMENTS. MOTHER IS 77YRS OLD Father Family Medical History: Diabetes Mellitus Additional Family Medical History / Comment(s): PACEMAKER, ENLARGED HEART, JOINT REPLACEMENTS, DIET CONTROLLED DM, MITRAL VALVE REPLACED. FATHER IS 77YRS OLD. General Exam General appearance: alert, in no apparent distress Head exam: Present: atraumatic, normocephalic, normal inspection Neck exam: Present: normal inspection, full ROM. Absent: tenderness, meningismus, lymphadenopathy Respiratory exam: Present: normal lung sounds bilaterally. Absent: respiratory distress, wheezes, rales, rhonchi, stridor Cardiovascular Exam: Present: regular rate, normal rhythm, normal heart sounds. Absent: systolic murmur, diastolic murmur, rubs, gallop, clicks Extremities exam: Present: other (left leg there is extensive ecchymosis from the knee to the mid calf region there is diffuse tenderness over the patella, over the tib-fib region neurovascular intact) Skin exam: Present: warm, dry, intact, normal color. Absent: rash Course Vital Signs 05/16/19 05/16/19 09:32 10:55 Temperature 98.2 F Pulse Rate 86 70 Respiratory 18 16 Rate Blood Pressure 155/99 147/57 O2 Sat by Pulse 96 97 Oximetry Medical Decision Making - Medical Decision Making X-rays of the left knee and tib-fib are negative for acute fracture. Also was obtained secondary to pain, swelling no acute evidence. Patient has a left leg contusion and swelling related to this. Patient be discharged in stable condition and advised to follow-up with PCP return parameters were discussed. Disposition Clinical Impression: Contusion of left knee, Contusion of left lower leg Disposition: HOME SELF-CARE Condition: Stable Instructions (If sedation given, give patient instructions): Knee Pain (ED) Additional Instructions: Please return to the Emergency Department if symptoms worsen or any other concerns. Is patient prescribed a controlled substance at d/c from ED?: No Referrals: Kris Austin MD [Primary Care Provider] - 1-2 days Time of Disposition: 11:57
--- NOTE | 2019-05-16 10:23 | XR ---
EXAMINATION TYPE: XR tibia fibula LT DATE OF EXAM: 05/16/2019 CLINICAL HISTORY: Pain from fall 5 days ago TECHNIQUE: Two views of the left leg are obtained. COMPARISON: None. FINDINGS: There is no acute fracture or dislocation seen in the left tibia or fibula. The left knee and ankle joints appear within normal limits. There is soft tissue swelling seen over the lateral le ft lower extremity diffusely. IMPRESSION: There is no acute fracture or dislocation seen in the left tibia or fibula. Generalized soft tissue swelling of the lateral left lower extremity.
--- NOTE | 2019-05-16 10:24 | XR ---
EXAMINATION TYPE: XR knee complete LT DATE OF EXAM: 05/16/2019 CLINICAL HISTORY: Left knee pain after fall TECHNIQUE: Three views of the left knee are obtained. COMPARISON: None. FINDINGS: There is no acute fracture/dislocation evident in left knee. The tri-compartment joint sp aces appear aligned with very small osteophytes of the medial compartment and mild medial compartment joint space narrowing. Overall mild medial compartment arthropathy. There is diffuse left lateral lozano bcutaneous edema, overall mild. IMPRESSION: Mild left lateral lower extremity edema with no acute fracture or dislocation in the left knee.
--- NOTE | 2019-05-16 11:53 | US ---
EXAMINATION TYPE: US venous doppler duplex LE LT DATE OF EXAM: 05/16/2019 10:26 AM COMPARISON: NONE CLINICAL HISTORY: pain. left leg swelling and bruising post fall. SIDE PERFORMED: Left TECHNIQUE: The lower extremity deep venous system is examined utilizing real time linear array sonog timmy with graded compression, doppler sonography and color-flow sonography. VESSELS IMAGED: External Iliac Vein (EIV) Common Femoral Vein Deep Femoral Vein Greater Saphenous Vein * Femoral Vein Popliteal Vein Small Saphenous Vein * Proximal Calf Veins (* superficial vessels) There is normal flow, compressibility, vascular waveforms. Left Leg: Negative for DVT IMPRESSION: No evident deep venous thrombosis at or above the left knee, follow-up as indicated.
[2019-05-16 12:33] VITALS: BP 130/66; PULSE 85; RESP 18
== END 2019-05-16 12:25 | disposition home or self-care (01) ==
LOC: EC 09:27
DX: S80.02XA Contusion of left knee, initial encounter (principal); S80.12XA Contusion of left lower leg, initial encounter; I25.2 Old myocardial infarction; E06.3 Autoimmune thyroiditis; F32.9 Major depressive disorder, single episode, unspecified; Z79.82 Long term (current) use of aspirin; Z79.890 Hormone replacement therapy; Z79.899 Other long term (current) drug therapy; W01.0XXA Fall on same level from slipping, tripping and stumbling without subsequent striking against object, initial encounter; Y92.009 Unspecified place in unspecified non-institutional (private) residence as the place of occurrence of the external cause
CPT/HCPCS: 99284

== ENCOUNTER → 2020-02-13 | Outpatient (CLI) | payer BC ==
--- NOTE | 2020-02-15 14:18 | MM ---
Reason for exam: screening (asymptomatic). Last mammogram was performed 1 year ago. History: Patient is nulliparous. Family history of breast cancer in mother, breast cancer in maternal grandmother, and breast cancer in maternal aunt. Took hormonal contraceptives for 11 years beginning at age 30. Took estrogen for 11 years. Physical Findings: A clinical breast exam by your physician is recommended on an annual basis and results should be correlated with mammographic findings. MG 3D Screening Mammo W/Cad Bilateral CC and MLO view(s) were taken. XCCL view(s) were taken of the left breast. Prior study comparison: February 03, 2019, bilateral MG 3d screening mammo w/cad. August 13, 2017, bilateral MG 3d screening mammo w/cad. There are scattered fibroglandular densities. No significant changes when compared with prior studies. ASSESSMENT: Benign, BI-RAD 2 RECOMMENDATION: Routine screening mammogram of both breasts in 1 year.
== END | disposition home or self-care (01) ==
LOC: RADMAMWWP 16:20
PROVIDERS: ATTEND Family Medicine
DX: Z12.31 Encounter for screening mammogram for malignant neoplasm of breast (principal)
CPT/HCPCS: 77063; 77067

== ENCOUNTER → 2020-03-22 | Day surgery (SDC) | payer BC ==
[2020-03-20 15:50] VITALS: BMI 47.8
[~2020-03-22] MED LIST: LACTATED RINGERS 1,000 ML IV SCH; LIDOCAINE 1% (10MG/ML) FOR IV START INTRADERMA ONE; LIDOCAINE 1% INJ 10MG/ML (20 ML MDV) ONE; PROPOFOL 10 MG/ML 20 ML VIAL IV ONE
[2020-03-22 08:42] VITALS: RESP 16; TEMP 97.9
--- NOTE | 2020-03-22 09:54 | P.PCN ---
Date of Procedure: 03/22/20 Procedure(s) Performed: BRIEF HISTORY: Patient is a 54-year-old pleasant female scheduled for an elective colonoscopy as a part of evaluation of positive cologuard PROCEDURE PERFORMED: Colonoscopy with snare polypectomy. PREOPERATIVE DIAGNOSIS: Positive: cologuard IV sedation per Anesthesia. PROCEDURE: After informed consent was obtained, the patient, was brought into the endoscopy unit. IV sedation was administered by Anesthesia under continuous monitoring. Digital rectal examination was normal. Initially the Olympus CF-160 flexible video colonoscope was then inserted in the rectum, gradually advanced into the cecum without any difficulty. Careful examination was performed as the scope was gradually being withdrawn. Ileocecal valve and the appendiceal orifice were visualized and appeared normal. Prep was excellent. Mucosa of the cecum, ascending colon, appeared normal. In the transverse colon there was a 1 cm broad-based polyp removed by snare polypectomy. transverse colon, descending colon, sigmoid colon, and rectum appeared normal. In the proximal rectum there was a 3 mm polyp removed by snare polypectomy. Retroflexion was performed in the rectum and no lesions were seen. The patient tolerated the procedure well. IMPRESSION: 1 cm transverse colon polyp status post polypectomy 3 mm rectal polyp status post polypectomy RECOMMENDATIONS: Findings of this examination were discussed with the patient well as her family. She was advised to follow with the biopsy results. If the biopsies are adenoma she can have a repeat colonoscopy in 3-5 years.
[2020-03-22 10:37] VITALS: BP 147/82; PULSE 82
== END ==
LOC: ORWHC2ENDO 08:06
PROVIDERS: ATTEND Internal Medicine Gastroenterology
DX: D12.3 Benign neoplasm of transverse colon (principal); K62.1 Rectal polyp; E07.9 Disorder of thyroid, unspecified; Z79.890 Hormone replacement therapy; Z79.82 Long term (current) use of aspirin; Z79.899 Other long term (current) drug therapy
CPT/HCPCS: 81025; 88305; 45385; J2001; J2704

== ENCOUNTER → 2020-12-06 | Outpatient (CLI) | payer BC ==
--- NOTE | 2020-12-13 14:52 | ECHOF ---
Referral Reason:I51.81 Takotsubo syndrome MEASUREMENTS -------- HEIGHT: 160.0 cm WEIGHT: 125.6 kg BP: RVIDd: 2.9 cm (< 3.3) IVSd: 0.9 cm (0.6 - 1.1) LVIDd: 4.8 cm (3.9 - 5.3) LVPWd: 1.5 cm (0.6 - 1.1) IVSs: 1.1 cm LVIDs: 4.5 cm LVPWs: 1.7 cm Ao Diam: 3.2 cm (2.0 - 3.7) AV Cusp: 2.0 cm (1.5 - 2.6) MV EXCURSION: 19.783 mm (> 18.000) MV EF SLOPE: 47 mm/s (70 - 150) EPSS: 1.4 cm MV E Gopi: 0.90 m/s MV DecT: 217 ms MV A Gopi: 1.03 m/s MV E/A Ratio: 0.88 AV maxP.84 mmHg AV meanP.56 mmHg FINDINGS -------- Sinus rhythm. Morbid Obesity This was a techncally difficult study with suboptimal views, , Lumason utilized for enhancement of images. The left ventricular size is normal. Overall left ventricular systolic function is mildly impaired with, an EF between 45 - 50 %. The right ventricle is normal in size. The left atrial size is normal. The right atrial size is normal. 5.0mg OF Lumason UTLIZED: 2 OR MORE WALL SEGMENTS NOT VISUALIZED. There is mild aortic stenosis present. Peak/mean gradient across the Aortic Valve is 17.84mmHg / 10 .56mmHg. There is trace mitral regurgitation. Mild tricuspid regurgitation present. Right ventricular systolic pressure is normal at < 35 mmHg. The pulmonic valve was not well visualized. There is no pericardial effusion. CONCLUSIONS -------- 1. This was a techncally difficult study with suboptimal views, , Lumason utilized for enhancement of images. 2. The left ventricular size is normal. 3. Overall left ventricular systolic function is mildly impaired with, an EF between 45 - 50 %. 4. The right ventricle is normal in size. 5. The left atrial size is normal. 6. The right atrial size is normal. 7. 5.0mg OF Lumason UTLIZED: 2 OR MORE WALL SEGMENTS NOT VISUALIZED. 8. There is mild aortic stenosis present. 9. Peak/mean gradient across the Aortic Valve is 17.84mmHg / 10.56mmHg. 10. There is trace mitral regurgitation. 11. Mild tricuspid regurgitation present. 12. The pulmonic valve was not well visualized. 13. There is no pericardial effusion. ORNAMENTAL IRONWORKER: Gi Davis RDCS
== END | disposition home or self-care (01) ==
LOC: RADECHMAIN 14:45
PROVIDERS: ATTEND Family Medicine
DX: I35.0 Nonrheumatic aortic (valve) stenosis (principal); I07.1 Rheumatic tricuspid insufficiency
CPT/HCPCS: 93306; Q9950

== ENCOUNTER → 2021-09-18 | Outpatient (CLI) | payer BC ==
--- NOTE | 2021-09-22 11:48 | MM ---
Reason for exam: screening (asymptomatic). Last mammogram was performed 1 year and 7 months ago. History: Patient is postmenopausal and is nulliparous. Family history of breast cancer in mother, breast cancer in maternal grandmother, and breast cancer in maternal aunt. Took hormonal contraceptives for 11 years beginning at age 30. Took estrogen for 11 years. Physical Findings: A clinical breast exam by your physician is recommended on an annual basis and results should be correlated with mammographic findings. MG 3D Screening Mammo W/Cad Bilateral CC and MLO view(s) were taken. Prior study comparison: February 13, 2020, bilateral MG 3d screening mammo w/cad. February 03, 2019, bilateral MG 3d screening mammo w/cad. There are scattered fibroglandular densities. No significant changes when compared with prior studies. ASSESSMENT: Benign, BI-RAD 2 RECOMMENDATION: Routine screening mammogram of both breasts in 1 year.
== END | disposition home or self-care (01) ==
LOC: RADMAMWWP 16:47
PROVIDERS: ATTEND Obstetrics & Gynecology
DX: Z12.31 Encounter for screening mammogram for malignant neoplasm of breast (principal); Z80.3 Family history of malignant neoplasm of breast
CPT/HCPCS: 77063; 77067

== ENCOUNTER → 2022-11-05 | Outpatient (CLI) | payer BC ==
--- NOTE | 2022-11-06 18:07 | MM ---
Reason for Exam: Screening (asymptomatic). Last mammogram was performed 1 year(s) and 2 month(s) ago. Patient History: Menarche at age 14. Patient has no children. Postmenopausal. Estrogen for 11 years until age 41. Hormonal Contraceptives for 11 years from age 30 until age 41. Maternal grandmother had breast cancer at or over age 50. Maternal aunt had breast cancer at or over age 50. Mother had breast cancer, age 61. Risk Values: Jenny 5 year model risk: 2.3%. NCI Lifetime model risk: 15.5%. Prior Study Comparison: 02/03/2019 Bilateral Screening Mammogram, [facility]. 02/13/2020 Bilateral Screening Mammogram, [facility]. 09/18/2021 Bilateral Screening Mammogram, [facility]. Tissue Density: There are scattered fibroglandular densities. Findings: Analyzed By CAD. There is no suspicious group of microcalcifications or new suspicious mass in either breast. Overall Assessment: Negative, BI-RAD 1 Management: Screening Mammogram of both breasts in 1 year. . Patient should continue monthly self-breast exams. A clinical breast exam by your physician is recommended on an annual basis. This exam should not preclude additional follow-up of suspicious palpable abnormalities. Note on Jenny scores and lifetime risk: 1. A Jenny score greater than 3% is considered moderate risk. If this is the case, consider specialist referral to assess eligibility for a risk reducing agent. 2. If overall lifetime risk for the development of breast cancer is 20% or higher, the patient may qualify for future screening with alternating mammogram and breast MRI. Electronically signed and approved by: Deacon Travis M.D. Radiologist
== END | disposition home or self-care (01) ==
LOC: RADMAMWWP 16:29
PROVIDERS: ATTEND Obstetrics & Gynecology
DX: Z12.31 Encounter for screening mammogram for malignant neoplasm of breast (principal); Z78.0 Asymptomatic menopausal state; Z80.3 Family history of malignant neoplasm of breast
CPT/HCPCS: 77063; 77067

== ENCOUNTER 2023-05-18 07:24 | Day surgery (SDC) | payer BC ==
[2023-05-14 08:27] VITALS: BMI 46.4
[~2023-05-18 07:24] MED LIST changes: -LIDOCAINE 1% (10MG/ML) FOR IV START INTRADERMA ONE; +LIDOCAINE 1% (10MG/ML) FOR IV START INTRADERMA PRN; -LIDOCAINE 1% INJ 10MG/ML (20 ML MDV) ONE; -PROPOFOL 10 MG/ML 20 ML VIAL IV ONE
[2023-05-18 08:03] LABS: Glucose,Whole Blood 135 mg/dL (70-110)
[2023-05-18] MEDS ORDERED: PROPOFOL 10 MG/ML 20 ML VIAL IV ONE (08:16)
[2023-05-18 08:19] VITALS: TEMP 97.8
--- NOTE | 2023-05-18 08:34 | P.PCN ---
Date of Procedure: 05/18/23 Procedure(s) Performed: BRIEF HISTORY: Patient is a 57-year-old pleasant white female scheduled for an elective colonoscopy as a part of evaluation of prior history of colon polyps. PROCEDURE PERFORMED: Colonoscopy with biopsy. PREOPERATIVE DIAGNOSIS:History of colon polyps. . IV sedation per Anesthesia. PROCEDURE: After informed consent was obtained, the patient, was brought into the endoscopy unit. IV sedation was administered by Anesthesia under continuous monitoring. Digital rectal examination was normal. Initially the Olympus CF-160 flexible video colonoscope was then inserted in the rectum, gradually advanced into the cecum without any difficulty. Careful examination was performed as the scope was gradually being withdrawn. Ileocecal valve and the appendiceal orifice were visualized and appeared normal. Prep was excellent. Mucosa of the cecum, appeared normal. Ascending colon there was a 3 mm and a 4 mm sessile polyp removed by cold biopsy. Rest of the ascending colon, transverse colon, descending colon, appeared normal. In the sigmoid there was a 5 mm polyp that was removed by cold biopsy. Rest of the sigmoid colon, and rectum appeared normal. Retroflexion was performed in the rectum and no lesions were seen. The patient tolerated the procedure well. IMPRESSION: 3 mm and 4 mm ascending colon polyp status post cold biopsy 5 mm; sigmoid polyp status post cold biopsy Rest of the colon appeared normal RECOMMENDATIONS: Findings of this examination were discussed with the patient as well as a family. She was advised to follow with the biopsy results and have a repeat colonoscopy in 5 years.
[2023-05-18 09:11] VITALS: BP 145/72; PULSE 75; RESP 16
== END 2023-05-18 09:28 | disposition home or self-care (01) ==
LOC: ORWHC2ENDO 07:24
PROVIDERS: ATTEND Internal Medicine Gastroenterology
DX: Z12.11 Encounter for screening for malignant neoplasm of colon (principal); K63.5 Polyp of colon; I25.2 Old myocardial infarction; I10 Essential (primary) hypertension; E78.5 Hyperlipidemia, unspecified; E11.9 Type 2 diabetes mellitus without complications; E03.9 Hypothyroidism, unspecified; F32.A Depression, unspecified; K21.9 Gastro-esophageal reflux disease without esophagitis; Z79.890 Hormone replacement therapy; Z79.899 Other long term (current) drug therapy; Z86.010 Personal history of colon polyps
CPT/HCPCS: 88305; 45380; J2704

== ENCOUNTER → 2023-12-03 | Outpatient (CLI) | payer BC ==
--- NOTE | 2023-12-08 13:08 | MM ---
Reason for Exam: Screening (asymptomatic). Last mammogram was performed 1 year(s) and 1 month(s) ago. Patient History: Menarche at age 14. Patient has no children. Postmenopausal. Estrogen for 11 years until age 41. Hormonal Contraceptives for 11 years from age 30 until age 41. Maternal grandmother had breast cancer at or over age 50. Maternal aunt had breast cancer at or over age 50. Mother had breast cancer, age 61. Risk Values: Jenny 5 year model risk: 2.4%. NCI Lifetime model risk: 15.2%. Prior Study Comparison: 02/13/2020 Bilateral Screening Mammogram, [facility]. 09/18/2021 Bilateral Screening Mammogram, [facility]. 11/05/2022 Bilateral MG 3D screening mammo w/cad, [facility]. Tissue Density: The breasts are almost entirely fatty. Findings: Analyzed By CAD. Right breast: There is no suspicious group of microcalcifications or new suspicious mass. Left breast: There is no suspicious group of microcalcifications or new suspicious mass. Overall Assessment: Negative, BI-RAD 1 Management: Screening Mammogram of both breasts in [address] [facility] will attempt to contact patient to return for supplemental views and ultrasound if indicated. Patient should continue monthly self-breast exams. A clinical breast exam by your physician is recommended on an annual basis. This exam should not preclude additional follow-up of suspicious palpable abnormalities. Note on Jenny scores and lifetime risk: 1. A Jenny score greater than 3% is considered moderate risk. If this is the case, consider specialist referral to assess eligibility for a risk reducing agent. 2. If overall lifetime risk for the development of breast cancer is 20% or higher, the patient may qualify for future screening with alternating mammogram and breast MRI. Electronically signed and approved by: Jared Sepulveda DO
== END | disposition home or self-care (01) ==
LOC: RADMAMWWP 16:09
PROVIDERS: ATTEND Family Medicine
DX: Z12.31 Encounter for screening mammogram for malignant neoplasm of breast (principal); Z78.0 Asymptomatic menopausal state; Z80.3 Family history of malignant neoplasm of breast
CPT/HCPCS: 77063; 77067